=== PATIENT | female | born 1975 | race Caucasian/White ===

== ENCOUNTER 2017-02-09 03:42 | Emergency (ER) | payer BC ==
[~2017-02-09] VITALS: Ht 160 cm; Wt 65.8 kg
[2017-02-09] MEDS ORDERED: VENTOLIN HFA18 GM INH (06:55)
[2017-02-09] MEDS ORDERED: SYMBICORT 160-4.6 GM INH (06:55)
[2017-02-09] MEDS ORDERED: BENADRYL25 MG PO (06:56)
== END 2017-02-09 07:50 | disposition short-term general hospital (02) ==
LOC: ER 03:42
DX: J45.901 Unspecified asthma with (acute) exacerbation (principal); E87.6 Hypokalemia; Z79.51 Long term (current) use of inhaled steroids; Z88.1 Allergy status to other antibiotic agents
CPT/HCPCS: J1200; J2930